=== PATIENT | female | born 1970 | race Caucasian/White ===

== ENCOUNTER → 2024-05-13 09:52 | Outpatient (REF) | payer OTHER, SELFPAY | LOC: WDC 09:52 | PROVIDERS: ATTENDING PHYSICIAN Internal Medicine | DX: N60.09 Solitary cyst of unspecified breast (principal); N63.11 Unspecified lump in the right breast, upper outer quadrant; N63.21 Unspecified lump in the left breast, upper outer quadrant | CPT/HCPCS: 76642; 77062; 77066 ==

== ENCOUNTER → 2025-02-15 09:58 | Outpatient (REF) | payer OTHER, SELFPAY | LOC: DHSLP 09:58 | PROVIDERS: ATTENDING PHYSICIAN Internal Medicine | DX: G47.33 Obstructive sleep apnea (adult) (pediatric) (principal) | CPT/HCPCS: 95800 ==